=== PATIENT | female | born 1975 | race Caucasian/White ===

== ENCOUNTER 2019-03-18 11:20 | Inpatient (IN) ==
--- NOTE | 2019-03-18 11:42 | EKG Report ---
Test Performed on : 03/18/2019 11:26:30 AM Test Reason : cp Blood Pressure : / mmHG Vent. Rate : 113 BPM Atrial Rate : 113 BPM P-R Int : 162 ms QRS Dur : 102 ms QT Int : 358 ms P-R-T Axes : 055 -13 064 degrees QTc Int : 491 ms Sinus tachycardia. Possible Left atrial enlargement Inferior infarct , age undetermined Anterolateral infarct , age undetermined Abnormal ECG No previous ECGs available Unconfirmed Result
--- NOTE | 2019-03-18 11:47 | Diag Imaging Result Doc PS360 ---
EXAM: CHEST-1 VIEW 03/18/2019 HISTORY: cp TECHNIQUE: AP upright portable at 1141 COMMENT: There are no previous studies available for comparison. There is cardiomegaly. There is alveolar opacification in the lower lobes particularly the right lower lobe. IMPRESSION: Cardiomegaly and mild pulmonary edema. Electronically signed by Chuy Childers 03/18/2019 11:44 AM
[2019-03-18 12:22] LABS: BASO# 0.02 X1000 (0.0-0.2); BASO% 0.2 % (0.0-0.8); EOS# 0.02 X1000 (0.0-0.7); EOS% 0.2 % (0.0-10.0); HEMATOCRIT 40.2 % (37.0-47.0); HEMOGLOBIN 11.8 g/dL (12.0-16.0); IMM GRAN# 0.05 X1000 (0.0-0.04); IMM GRAN% 0.6 % (0.0-0.5); LYMPH# 0.91 X1000 (1.2-3.4); LYMPH% 10.1 % (20.5-51.1); MCH 27.6 PG (27-31); MCHC 29.4 g/dL (33-37); MCV 94.1 FL (81-99); MONO# 0.56 X1000 (0.11-0.59); MONO% 6.2 % (1.7-9.3); MPV 11.5 FL (7.4-10.4); NEUT# 7.49 X1000 (1.4-6.5); NEUT% 82.7 % (42.2-75.2); PLT 161 X1000 (130-400); RBC 4.27 XMIL (4.2-5.4); RDW 19.9 % (11.5-14.5); WBC 9.05 X1000 (4.8-10.8)
[2019-03-18 12:30] LABS: INR 1.31; PROTIME 16.5 Seconds (11.0-16.0); PTT 32.7 Seconds (22.3-41.8)
[2019-03-18 13:30] LABS: AGAP 16; ALB/GLOB RATIO 1.3; ALBUMIN 3.4 g/dL (3.5-5.0); ALKALINE PHOSPHATASE 81 U/L (32-104); BUN 15 mg/dL (8-22); CALCIUM 8.7 mg/dL (8.8-10.2); CHLORIDE 95 mmol/L (98-107); COSMO 282; CREATININE 0.8 mg/dL (0.5-0.9); ESTIMATED GFR > 60; GLUCOSE 168 mg/dL (70-104); GOT 16 U/L (10-30); GPT 11 U/L (10-36); SODIUM 139 mmol/L (136-145); TCO2 28 mmol/L (25-35); TOTAL BILIRUBIN 2.32 mg/dL (0.20-1.00); TOTAL PROTEIN 6.1 g/dL (6.3-8.3)
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
[2019-03-18] MEDS ORDERED: NITROGLYCERIN SL PRN (13:52)
[2019-03-18] MEDS ORDERED: ZOFRAN IV PRN (13:52)
[2019-03-18 13:53] LABS: POTASSIUM 2.6 mmol/L (3.5-5.1)
[2019-03-18] MEDS ORDERED: LASIX IV ONE (13:56)
[2019-03-18] MEDS ORDERED: LOVENOX SUBQ SCH (14:00)
[2019-03-18 14:54] LABS: HEMOGLOBIN A1C 5.9 % (4.8-6.0)
[2019-03-18 15:36] LABS: FREE T4 1.37 ng/dL (0.93-1.70); TSH 4.79 uIUmL (0.27-4.20)
[2019-03-18] MEDS ORDERED: POTASSIUM CHLORIDE 60 MEQ in NS 500 ML IV ONE (15:57)
[2019-03-18] MEDS ORDERED: KLOR-CON PO ONE ×2 (15:57→21:09)
--- NOTE | 2019-03-18 17:23 | Diag Imaging Result Doc PS360 ---
EXAM: CT ANGIOGRM PULMONARY ARTERIES INDICATION: rule out PE; sob; chest pain TECHNIQUE: This exam was performed using automated exposure control, adjustment of mA or kV according to patient size, and/or use of iterative reconstruction technique. Thin section axial images and 3-D MIPS were obtained. COMPARISON: None. FINDINGS: There is no evidence of pulmonary embolism. The aorta is not opacified. However, there is no evidence of aortic aneurysm. There is cardiomegaly. There is no evidence of significant mediastinal or hilar lymphadenopathy. There is groundglass opacity and interstitial thickening at the lower lung zones bilaterally, more prominent on the right. This affects predominantly the lower lobes but also the right middle lobe and, to a lesser degree, the inferior lingula and anterior segment of the right upper lobe. The CT pattern is that of crazy paving. This is highly nonspecific but can be associated with alveolar proteinosis. It may simply represent pulmonary edema. Please correlate clinically. There is no pleural fluid collection and no pneumothorax. Limited views of the upper abdomen reveals a small to moderate amount of ascites around the liver and spleen. There is body wall anasarca. IMPRESSION: 1.Groundglass consolidation and interstitial thickening at the lung bases. Please see above discussion. 2.Cardiomegaly. 3.Small to moderate amount of ascites tracking around the liver and spleen. 4.Body wall anasarca. 5.No evidence of pulmonary embolism. Electronically signed by Jon Capone 03/18/2019 5:20 PM
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
[2019-03-18] MEDS: TYLENOL PO PRN (19:17)
[2019-03-18 19:25] LABS: UR AMPHETAMINES QUAL NONE DETECTED (NONE DETECT); UR BARBITUATES QUAL NONE DETECTED (NONE DETECT); UR BENZODIAZEPIN QUAL NONE DETECTED (NONE DETECT); UR CANNABINOIDS QUAL NONE DETECTED (NONE DETECT); UR COCAINE QUAL NONE DETECTED (NONE DETECT); UR METHADONE QUAL NONE DETECTED (NONE DETECT); UR OPIATES QUAL NONE DETECTED (NONE DETECT); UR OXYCODONE QUAL NONE DETECTED (NONE DETECT); UR PCP QUAL NONE DETECTED (NONE DETECT)
[2019-03-18] MEDS ORDERED: CYMBALTA PO ONE (19:36)
[2019-03-18] MEDS ORDERED: PRILOSEC PO SCH (21:00)
[2019-03-18] MEDS: DEMADEX PO SCH (21:48)
[2019-03-19] MEDS: MORPHINE IV PRN ×2 (01:25→21:38)
[2019-03-19 06:05] LABS: BASO# 0.01 X1000 (0.0-0.2); BASO% 0.1 % (0.0-0.8); EOS# 0.06 X1000 (0.0-0.7); EOS% 0.7 % (0.0-10.0); HEMATOCRIT 39.5 % (37.0-47.0); HEMOGLOBIN 11.3 g/dL (12.0-16.0); LYMPH# 1.43 X1000 (1.2-3.4); LYMPH% 15.8 % (20.5-51.1); MCH 27.6 PG (27-31); MCHC 28.6 g/dL (33-37); MCV 96.6 FL (81-99); MONO# 0.61 X1000 (0.11-0.59); MONO% 6.7 % (1.7-9.3); MPV 11.2 FL (7.4-10.4); NEUT# 6.95 X1000 (1.4-6.5); NEUT% 76.7 % (42.2-75.2); PLT 174 X1000 (130-400); RBC 4.09 XMIL (4.2-5.4); WBC 9.06 X1000 (4.8-10.8)
[2019-03-19 06:29] LABS: ALB/GLOB RATIO 1.3; ALBUMIN 3.5 g/dL (3.5-5.0); CALCIUM 8.7 mg/dL (8.8-10.2); MAGNESIUM 1.6 mg/dL (1.5-2.7); POTASSIUM 3.5 mmol/L (3.5-5.1); TOTAL BILIRUBIN 1.59 mg/dL (0.20-1.00); TOTAL PROTEIN 6.1 g/dL (6.3-8.3)
[2019-03-19] MEDS ORDERED: LEXISCAN ONE (08:02)
[2019-03-19] MEDS ORDERED: LASIX PO SCH (09:00)
[2019-03-19] MEDS ORDERED: CYMBALTA PO SCH (09:00)
[2019-03-19] MEDS: PROTONIX PO SCH (10:12)
[2019-03-19] MEDS: DEMADEX PO SCH (10:12)
[2019-03-19] MEDS: ASPIRIN EC PO SCH (10:13)
[2019-03-19] MEDS ORDERED: TUCKS PADS TOP PRN (10:55)
[2019-03-19 11:09] LABS: IRON SATURATION 10 %; TIBC 422 ug/dL; TOTAL IRON 41 ug/dL (49-151); UNBOUND IRON 381 ug/dL (112-346)
[2019-03-19] MEDS: LANOXIN IV SCH ×3 (11:21→17:59)
[2019-03-19] MEDS: ALDACTONE PO SCH (11:22)
[2019-03-19] MEDS: ALTACE PO SCH ×2 (11:22→21:23)
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
[2019-03-19] MEDS: LASIX IV SCH ×2 (12:36→21:24)
[2019-03-19] MEDS: ANUSOL-HC SUPP PR SCH ×2 (12:40→16:28)
[2019-03-19] MEDS: ANUSOL-HC CREAM PR SCH ×2 (12:40→21:29)
--- NOTE | 2019-03-19 13:03 | ECHO REPORT ---
ORDER DATE: 03/18/2019 INDICATIONS: CHF, shortness of breath, chest pain. FINDINGS: 1. Severe enlargement of the right atrium. 2. Severe tricuspid regurgitation. RV systolic pressure of 37. 3. Dilatation of the right ventricle with [id number] reduction in RV systolic function. 4. Mild pulmonic insufficiency. 5. Severe left atrial enlargement with a dimension of 5.1 cm. 6. No mitral valve prolapse. Mild mitral regurgitation. No mitral stenosis. 7. Dilated left ventricle with an end-diastolic dimension of 6 cm. Normal wall thicknesses with a posterior and interventricular septal thickness of 1.0 and 1.1 cm respectively. Severe reduction in LV systolic function with an estimated EF of 15%. Optison contrast was used. There was no clear evidence of left ventricular thrombus. 8. The aortic valve opens well. It is trileaflet. No evidence of stenosis or insufficiency. 9. The aorta appears normal in visualized segments. 10. No pericardial effusion identified. 11. Injection of agitated saline contrast showed a scant amount of bubbles on the left side of the heart suggesting an extremely small [id number]-[id number]-kgty shunt, possibly an extremely small PFO. cc: MD Chiquita Kay CRNP
--- NOTE | 2019-03-19 13:46 | Diag Imaging Result Document ---
PROCEDURE NAME: MYOCARDIAL PERFU SCAN, REST - 03/19/2019 RESTING NUCLEAR SCAN: 15.9 mCi of Cardiolite was injected. Non-gated rest images were obtained. Images revealed left ventricle is severely dilated. There is a large severe grade defect in the inferior wall. Large size severe grade defect in the left ventricular apex, there is large size, moderate grade defect in the lateral wall. CONCLUSIONS: Dilated left ventricle with a large size defect severe grade in the inferior and inferoapical wall, in addition there is large size, moderate grade to severe defect in the inferolateral wall. cc: MD Chiquita Feliciano CRNP
[2019-03-19] MEDS: VENOFER 250 MG in NS 150 ML IV SCH (16:26)
--- NOTE | 2019-03-19 16:54 | PROGRESS NOTE ---
DATE: 03/19/2019 INTERVAL HISTORY: Patient with stable lower extremity swelling. Continues to saturate well on room air. Left shoulder, neck pain stable. REVIEW OF SYSTEMS: Twelve point review of systems negative except as per interval history. LABS: WBC 9.0, hemoglobin 11.3, hematocrit 39.5, platelets 174,000. Sodium 141, potassium 3.5, BUN 20, creatinine 1.0, glucose 143. Troponin 0.14, approximately the same as previous. VITAL SIGNS: Temperature 97.8 degrees, pulse 104, respirations 24, blood pressure 124/94, O2 saturation 100% on room air. PHYSICAL EXAMINATION: General: No acute distress. Vital signs: As above. HEENT: Normocephalic, atraumatic. Moist mucous membranes. Cardiovascular: Minimally tachycardic but regular. No murmurs noted. Pulmonary: Essentially clear to auscultation bilaterally. Abdomen: Soft, nontender, minimal distention. Bowel sounds positive. Extremities: Peripheral pulses intact. Lower extremities are tight, but pitting fairly minimal, trace to 1+. No clubbing or cyanosis. Neurologic: Cranial nerves grossly intact. No focal deficits identified. Psychiatric: Normal mood and affect. Awake, alert, oriented x3. ASSESSMENT AND PLAN: 1. Acute on chronic systolic congestive heart failure. Last known EF 10%. No previous BNP in our system, but it is elevated. I do not know what she usually runs. Cardiology on board and planning to diurese patient. Volume overload is primarily in the legs. Her lungs are pretty clear and she is saturating well on room air. Monitor. 2. Left arm and neck pain. This was after significant anxiety and some exertion. Does have a mildly elevated troponin, but it appears to be flat. The patient had a catheterization approximately 1.5 months ago. Stress test was ordered initially but canceled by Cardiology because of recent catheterization and known severe systolic congestive heart failure. Further management as per Cardiology. 3. Hypertension. Continue CHF medicines and monitor. 4. Gastroesophageal reflux disease. Continue PPI. 5. Anxiety. Continue Cymbalta. 6. History of right arm deep vein thrombosis. Reportedly on Xarelto at home. Holding currently but will plan on restarting if no need for procedures. 7. Tobacco abuse. Counseled on cessation.
[2019-03-20] MEDS: LANOXIN IV SCH (02:03)
[2019-03-20] MEDS: MORPHINE IV PRN ×2 (06:11→20:54)
[2019-03-20] MEDS: PROTONIX PO SCH (06:14)
[2019-03-20 07:48] LABS: BASO# 0.02 X1000 (0.0-0.2); BASO% 0.2 % (0.0-0.8); EOS# 0.08 X1000 (0.0-0.7); EOS% 0.9 % (0.0-10.0); HEMATOCRIT 38.2 % (37.0-47.0); IMM GRAN# 0.02 X1000 (0.0-0.04); IMM GRAN% 0.2 % (0.0-0.5); LYMPH# 0.84 X1000 (1.2-3.4); LYMPH% 9.6 % (20.5-51.1); MCH 27.2 PG (27-31); MCHC 28.8 g/dL (33-37); MCV 94.6 FL (81-99); MONO# 0.46 X1000 (0.11-0.59); MONO% 5.3 % (1.7-9.3); MPV 10.7 FL (7.4-10.4); NEUT# 7.31 X1000 (1.4-6.5); NEUT% 83.8 % (42.2-75.2); PLT 144 X1000 (130-400); RBC 4.04 XMIL (4.2-5.4); RDW 19.6 % (11.5-14.5); WBC 8.73 X1000 (4.8-10.8)
[2019-03-20 08:14] LABS: AGAP 13; ALB/GLOB RATIO 1.6; ALBUMIN 3.2 g/dL (3.5-5.0); ALKALINE PHOSPHATASE 74 U/L (32-104); BUN 15 mg/dL (8-22); CALCIUM 8.7 mg/dL (8.8-10.2); CHLORIDE 97 mmol/L (98-107); COSMO 285; CREATININE 0.8 mg/dL (0.5-0.9); ESTIMATED GFR > 60; GLUCOSE 121 mg/dL (70-104); GOT 12 U/L (10-30); GPT 9 U/L (10-36); MAGNESIUM 1.5 mg/dL (1.5-2.7); POTASSIUM 3.3 mmol/L (3.5-5.1); SODIUM 142 mmol/L (136-145); TCO2 32 mmol/L (25-35); TOTAL BILIRUBIN 1.84 mg/dL (0.20-1.00); TOTAL PROTEIN 5.2 g/dL (6.3-8.3)
[2019-03-20 08:42] LABS: ANISOCYTOSIS 1+; HYPOCHROM 1+; LYMPHS 10 % (21-51); MONO 2 % (1-9); POIKILOCYTOSIS 1+; SEGS 88 % (42-75)
[2019-03-20] MEDS: TYLENOL PO PRN (10:15)
[2019-03-20] MEDS: ALDACTONE PO SCH (10:17)
[2019-03-20] MEDS: ALTACE PO SCH ×2 (10:17→20:54)
[2019-03-20] MEDS: ANUSOL-HC SUPP PR SCH ×3 (10:17→16:59)
[2019-03-20] MEDS: LOVENOX SUBQ SCH (10:17)
[2019-03-20] MEDS: ASPIRIN EC PO SCH (10:17)
[2019-03-20] MEDS: ANUSOL-HC CREAM PR SCH ×2 (10:19→22:17)
[2019-03-20] MEDS ORDERED: KLOR-CON PO ONE (10:54)
[2019-03-20] MEDS ORDERED: MAGNESIUM SULFATE 2 GM/S.W.I. 2 GM/50 ML IVPB IV ONE (11:30)
[2019-03-20] MEDS: LASIX IV SCH ×2 (11:57→20:54)
[2019-03-20] MEDS: VENOFER 250 MG in NS 150 ML IV SCH (11:57)
--- NOTE | 2019-03-20 12:26 | PROGRESS NOTE ---
DATE: 03/20/2019 SUBJECTIVE: The patient has been complaining of some shortness of breath and cough, she is still having lower extremity edema with some blisters and is weeping. We will continue with diuretics, Cardiology Department on board. OBJECTIVE: Vital Signs: Temperature 97.8 degrees, pulse 94, respiratory rate 22, blood pressure 125/73, oxygen saturation 100% on room air. HEENT: Head normocephalic, no trauma, PERRLA. Neck: Supple. She does have some JVD, central trachea, but is hard to see because of her neck size. Chest: Decreased breath sounds globally with some crepitus at the bases. Abdomen: Soft, protuberant, obese, positive bowel sounds. Extremities: 1+ lower extremity edema, but her lower extremities are tight, she has some blisters and is weeping. Neurological: The patient is awake, alert. She is oriented x3. No focal neurological deficits. LABORATORY: WBC 8.7, hemoglobin 11, hematocrit 38.2, platelet 144,000. Sodium 142, potassium 3.3, chloride 97, bicarbonate 32, BUN 15, creatinine 0.8, glucose 121, calcium 8.7, magnesium 1.5, albumin 3.2. ASSESSMENT AND PLAN: 1. CHF exacerbation, systolic. Her ejection fraction is around 15%. She has been placed on diuretics, Cardiology Department on board. We will continue to monitor this patient closely. She feels a bit better, but still short of breath and she is still edematous. 2. History of severe coronary artery disease with multiple coronary interventions. 3. Hypertension, stable. 4. Gastroesophageal reflux disease. Continue proton pump inhibitors. 5. Anxiety, continue with Cymbalta. 6. History of right arm DVT. It looks like she has been on Xarelto at home, I will corroborate this information. At this moment she is on Lovenox high dose so we will monitor for now. 7. Morbid obesity with a body mass index of 40.0. 8. Tobacco abuse. This patient has been highly advised against tobacco use. I will continue with daily cessation education. 9. Hypokalemia with borderline low hypomagnesemia. I will replace both. cc: Nikko Harrison MD
--- NOTE | 2019-03-20 12:28 | EKG Report ---
Test Performed on : 03/20/2019 07:17:35 AM Test Reason : dyspnea Blood Pressure : / mmHG Vent. Rate : 095 BPM Atrial Rate : 095 BPM P-R Int : 158 ms QRS Dur : 104 ms QT Int : 390 ms P-R-T Axes : 048 004 026 degrees QTc Int : 490 ms Normal sinus rhythm. Inferior infarct , age undetermined Anterolateral infarct , age undetermined Abnormal ECG Confirmed by Wilder JACOBSON, Theo Bellamy ([id number]) on 03/22/2019 9:28:24 AM
--- NOTE | 2019-03-20 18:40 | CARDIOLOGY PROGRESS NOTE ---
DATE: 03/20/2019 SUBJECTIVE: Ms. Bernard reports she is doing better. Her breathing has improved. Edema has improved, but has not resolved. OBJECTIVE: vital signs: Afebrile. Heart rate 97, blood pressure 118/78. Her cumulative I's and O's have been negative 2.3 L. General: No acute distress. Cardiovascular: She sounds to be in a regular rate and rhythm. She has no murmurs. She has marked bilateral lower extremity edema. Warm and well perfused extremities. Chest: Clear bilaterally. No increased work of breathing. Abdomen: Soft, nontender. PERTINENT DATA: White count 8.7, hematocrit 38. Sodium 142, potassium is 3.3, BUN 15, creatinine 0.8, magnesium level is 1.5. ASSESSMENT: Ms. Bernard is a 43-year-old female with systolic heart failure. PLAN: We will continue with diuresis. I have added in a low dose of beta-lina at 3.125 mg b.i.d. of Coreg. cc: Jeremi Mcleod MD
[2019-03-20] MEDS: COREG PO SCH (20:54)
[2019-03-21] MEDS: PROTONIX PO SCH (06:02)
[2019-03-21 06:19] LABS: BASO# 0.01 X1000 (0.0-0.2); BASO% 0.1 % (0.0-0.8); EOS# 0.05 X1000 (0.0-0.7); EOS% 0.5 % (0.0-10.0); HEMATOCRIT 37.6 % (37.0-47.0); HEMOGLOBIN 10.7 g/dL (12.0-16.0); IMM GRAN# 0.03 X1000 (0.0-0.04); IMM GRAN% 0.3 % (0.0-0.5); LYMPH# 0.94 X1000 (1.2-3.4); LYMPH% 9.4 % (20.5-51.1); MCHC 28.5 g/dL (33-37); MCV 94.7 FL (81-99); MPV 11.3 FL (7.4-10.4); NEUT# 8.25 X1000 (1.4-6.5); NEUT% 82.7 % (42.2-75.2); PLT 149 X1000 (130-400); RBC 3.97 XMIL (4.2-5.4); RDW 19.5 % (11.5-14.5); WBC 9.98 X1000 (4.8-10.8)
[2019-03-21 06:41] LABS: AGAP 13; ALB/GLOB RATIO 1.4; ALBUMIN 3.4 g/dL (3.5-5.0); ALKALINE PHOSPHATASE 82 U/L (32-104); BUN 12 mg/dL (8-22); CALCIUM 8.4 mg/dL (8.8-10.2); CHLORIDE 95 mmol/L (98-107); COSMO 274; CREATININE 0.7 mg/dL (0.5-0.9); ESTIMATED GFR > 60; GLUCOSE 131 mg/dL (70-104); GOT 13 U/L (10-30); GPT 9 U/L (10-36); MAGNESIUM 1.8 mg/dL (1.5-2.7); POTASSIUM 3.5 mmol/L (3.5-5.1); SODIUM 136 mmol/L (136-145); TCO2 28 mmol/L (25-35); TOTAL BILIRUBIN 1.82 mg/dL (0.20-1.00); TOTAL PROTEIN 5.8 g/dL (6.3-8.3)
--- NOTE | 2019-03-21 06:47 | EKG Report ---
Test Performed on : 03/21/2019 06:29:50 AM Test Reason : dyspnea Blood Pressure : / mmHG Vent. Rate : 090 BPM Atrial Rate : 090 BPM P-R Int : 172 ms QRS Dur : 106 ms QT Int : 450 ms P-R-T Axes : 037 -05 060 degrees QTc Int : 550 ms Critical Test Result: Long QTc Normal sinus rhythm. Possible Left atrial enlargement Inferior infarct , age undetermined Anterolateral infarct , age undetermined Abnormal ECG Confirmed by Wilder JACOBSON, Theo Bellamy ([id number]) on 03/22/2019 9:28:55 AM
--- NOTE | 2019-03-21 06:54 | Diag Imaging Result Doc PS360 ---
EXAM: CHEST-PORTABLE 03/21/2019 HISTORY: dyspnea TECHNIQUE: AP portable at 0447 COMMENT: There is cardiomegaly. There is bilateral lower lobe alveolar opacity which was also present on 03/18/2019. IMPRESSION: Bibasilar pulmonary edema versus pneumonia. Cardiomegaly. Electronically signed by Chuy Childers 03/21/2019 6:52 AM
[2019-03-21] MEDS: VENOFER 250 MG in NS 150 ML IV SCH (09:34)
[2019-03-21] MEDS: ASPIRIN EC PO SCH (09:39)
[2019-03-21] MEDS: LASIX IV SCH ×2 (09:39→20:37)
[2019-03-21] MEDS: ALTACE PO SCH ×2 (09:39→20:37)
[2019-03-21] MEDS: ALDACTONE PO SCH (09:39)
[2019-03-21] MEDS: LOVENOX SUBQ SCH (09:39)
[2019-03-21] MEDS: ANUSOL-HC SUPP PR SCH ×3 (09:40→17:40)
[2019-03-21] MEDS: COREG PO SCH ×2 (09:40→20:37)
[2019-03-21] MEDS: ANUSOL-HC CREAM PR SCH ×2 (09:44→20:37)
--- NOTE | 2019-03-21 11:03 | PROGRESS NOTE ---
DATE: 03/21/2019 SUBJECTIVE: This patient is feeling better today. She is still having severe lower extremity edema with some blisters, and it is weeping. We will continue with diuretics. Cardiology Department on board. Kidney function stable. OBJECTIVE: Vital Signs: Temperature 97.7 degrees, pulse 92, respiratory rate 20, blood pressure 125/87, oxygen saturation 96% on room air. HEENT: Head normocephalic, no trauma, PERRLA. Neck: Supple. She does have some JVD. Central trachea, but it is hard to see because of her neck size. Chest: Decreased breath sounds mostly at the bases with some crepitus. Abdomen: Soft, protuberant, obese. Positive bowel sounds. Extremities: 3+ lower extremity edema. Her extremities are really tight, and she has some blister and weeping. Neurological: This patient is awake and oriented x3. No focal deficits. LABORATORY: WBC 9.9, hemoglobin 10.7, hematocrit 37.6, platelets 149,000. Sodium 136, potassium 3.5, chloride 95, bicarbonate 28, BUN 12, creatinine 0.7, glucose 131, calcium 8.4, magnesium 1.8, albumin 3.4. ASSESSMENT AND PLAN: 1. Congestive heart failure exacerbation, systolic, her ejection fraction is around 15%. She has been placed on diuretics, Cardiology Department on board. Continue with same management. She is feeling better, but she still has significant fluid overload, mostly at the level of the lower extremity. 2. History of severe coronary artery disease with multiple coronary interventions. 3. Hypertension, stable. 4. Gastroesophageal reflux disease. Continue with proton pump inhibitors. 5. Anxiety, continue with Cymbalta. 6. History of right arm DVT, continue with Lovenox. 7. Morbid obesity with a body mass index of 40.1. Aware. 8. Tobacco abuse. This patient has been highly advised against tobacco use. I will continue with daily cessation education. 9. Hypokalemia with borderline low hypomagnesemia, resolved. cc: Nikko Harrison MD
[2019-03-21] MEDS ORDERED: MAGNESIUM SULFATE 2 GM/S.W.I. 2 GM/50 ML IVPB IV ONE (12:25)
--- NOTE | 2019-03-21 14:37 | CARDIOLOGY PROGRESS NOTE ---
DATE: 03/21/2019 SUBJECTIVE: Ms Bernard reports she is doing well. Breathing has improved. She still has severe lower extremity edema. PHYSICAL EXAMINATION: Vital signs: Afebrile. Heart rate 92, blood pressure 125/87. I's and O's continue to be negative. She is a total net output of 3.1 L for the course of the hospitalization. General: No acute distress. Cardiovascular: She sounds to be in a regular rate and rhythm. She has no murmurs. She has marked bilateral lower extremity edema. Warm and well perfused. Chest: Clear bilaterally. Distant. No increased work of breathing. Abdomen: Soft, nontender. PERTINENT DATA: Sodium 136, potassium 3.5, BUN 12, creatinine 0.7, magnesium level 1.8. ASSESSMENT: Ms. Bernard is a 43-year-old female with congestive heart failure. PLAN: She continues to diurese. Her x-ray continues to show possible edema versus pneumonia. She is diuresing reasonably well. We will continue her on the current medications. Recheck laboratories in the morning. cc: Jeremi Mcleod MD
[2019-03-21] MEDS: MORPHINE IV PRN (21:06)
[2019-03-22] MEDS: TYLENOL PO PRN (03:19)
[2019-03-22] MEDS: PROTONIX PO SCH (06:11)
[2019-03-22 06:16] LABS: BASO# 0.01 X1000 (0.0-0.2); BASO% 0.1 % (0.0-0.8); EOS# 0.05 X1000 (0.0-0.7); EOS% 0.5 % (0.0-10.0); HEMATOCRIT 36.9 % (37.0-47.0); HEMOGLOBIN 10.7 g/dL (12.0-16.0); LYMPH# 1.18 X1000 (1.2-3.4); LYMPH% 12.4 % (20.5-51.1); MCH 27.9 PG (27-31); MCV 96.3 FL (81-99); MONO# 0.72 X1000 (0.11-0.59); MONO% 7.6 % (1.7-9.3); MPV 11.5 FL (7.4-10.4); NEUT# 7.55 X1000 (1.4-6.5); NEUT% 79.4 % (42.2-75.2); PLT 149 X1000 (130-400); RBC 3.83 XMIL (4.2-5.4); RDW 19.7 % (11.5-14.5); WBC 9.51 X1000 (4.8-10.8)
[2019-03-22 06:48] LABS: AGAP 13; ALB/GLOB RATIO 1.9; ALBUMIN 3.6 g/dL (3.5-5.0); ALKALINE PHOSPHATASE 96 U/L (32-104); BUN 14 mg/dL (8-22); CALCIUM 8.7 mg/dL (8.8-10.2); CHLORIDE 98 mmol/L (98-107); COSMO 281; CREATININE 0.8 mg/dL (0.5-0.9); ESTIMATED GFR > 60; GLUCOSE 115 mg/dL (70-104); GOT 13 U/L (10-30); GPT 10 U/L (10-36); MAGNESIUM 2.1 mg/dL (1.5-2.7); POTASSIUM 3.6 mmol/L (3.5-5.1); SODIUM 140 mmol/L (136-145); TCO2 29 mmol/L (25-35); TOTAL PROTEIN 5.5 g/dL (6.3-8.3)
--- NOTE | 2019-03-22 07:06 | EKG Report ---
Test Performed on : 03/22/2019 06:57:41 AM Test Reason : dyspnea Blood Pressure : / mmHG Vent. Rate : 086 BPM Atrial Rate : 086 BPM P-R Int : 168 ms QRS Dur : 110 ms QT Int : 364 ms P-R-T Axes : 046 000 080 degrees QTc Int : 435 ms Normal sinus rhythm. Inferior infarct , age undetermined Anterolateral infarct , age undetermined Abnormal ECG Confirmed by Wilder JACOBSON, Theo Bellamy ([id number]) on 03/22/2019 9:29:25 AM
--- NOTE | 2019-03-22 08:08 | CARDIOLOGY PROGRESS NOTE ---
DATE: 03/22/2019 CHIEF COMPLAINT: Shortness of breath, swelling, palpitations. SUBJECTIVE: Ms. Bernard is feeling better. Her distance learning technician shows that her rate is better controlled. She has had one 4-beat run of ventricular tachycardia this morning. Otherwise, she has developed some pain and swelling of the right arm at the site of a recent intravenous line consistent with right thrombophlebitis. OBJECTIVE: Blood pressure 118/73, temperature 97.8, pulse 92, respirations 18. The patient is awake, alert, oriented, no distress. HEENT is unremarkable. Chest sounds clear to auscultation and percussion. Her heart sounds showed a gallop rhythm, third heart sound gallop. Abdomen is obese, slightly prominent. Extremities showed 2 to 3+ edema. She still has blisters in the legs. IMPRESSION: 1. The patient has persistent congestive heart failure, systolic, chronic, plus acute decompensation. 2. Morbid obesity. 3. History of severe coronary artery disease with previous myocardial infarction and coronary intervention. 4. Hypertension. 5. Tobacco user. 6. Hyperlipidemia. RECOMMENDATIONS: At this time, we will make her spironolactone twice a day. We will continue present medical therapy. I am going to put her on some digoxin which I think is appropriate for her given her significant left ventricular dysfunction. Her echocardiogram from 03/18/2019 showed ejection fraction of 15%. Further intervention will depend on her clinical course. cc: Negrito Macedo MD
[2019-03-22] MEDS: VENOFER 250 MG in NS 150 ML IV SCH (08:37)
[2019-03-22] MEDS: LASIX IV SCH ×2 (08:37→22:24)
[2019-03-22] MEDS: ALDACTONE PO SCH ×2 (08:44→22:24)
[2019-03-22] MEDS: ASPIRIN EC PO SCH (08:44)
[2019-03-22] MEDS: COREG PO SCH ×2 (08:44→22:23)
[2019-03-22] MEDS: ALTACE PO SCH ×2 (08:44→22:23)
[2019-03-22] MEDS: LOVENOX SUBQ SCH (08:45)
[2019-03-22] MEDS: ANUSOL-HC SUPP PR SCH ×3 (08:45→17:29)
[2019-03-22] MEDS: ANUSOL-HC CREAM PR SCH ×2 (08:47→22:40)
[2019-03-22] MEDS: LANOXIN PO SCH (08:50)
--- NOTE | 2019-03-22 18:40 | PROGRESS NOTE ---
DATE: 03/22/2019 SUBJECTIVE: This patient seems to be better today. She still has significant lower extremity edema and blisters, some weeping. Cardiology Department has evaluated this patient, and they have modified some of her medications including the spironolactone, and they added digoxin. We will monitor. OBJECTIVE: Vital Signs: Temperature 97.9 degrees, pulse 84, respiratory rate 16, blood pressure 120/72, and oxygen saturation 97% on room air. HEENT: Head normocephalic. No trauma. PERRLA. Neck: Supple. She does have some JVD. Central trachea. Chest: Decreased breath sounds mostly at the bases with some crepitus. Abdomen: Soft. Protuberant. Obese. Positive bowel sounds. Extremities: 3+ lower extremity edema. Her extremities are really tight. She has some blister and weeping. Neurological: This patient is awake and alert. She is oriented x3. No focal deficits. LABORATORY: WBC 9.5, hemoglobin 10.7, hematocrit 36.9, and platelets 149,000. Sodium 140, potassium 3.6, chloride 98, bicarbonate 29, BUN 14, creatinine 0.8 glucose 115, and calcium 8.7. ASSESSMENT AND PLAN: 1. Congestive heart failure exacerbation systolic. Her ejection fraction is around 50%. She has been placed on diuretics, Cardiology Department on board. The frequency of spironolactone has been modified, and now she is on digoxin. We will continue with same management. I will follow the recommendations of Cardiology Department. She is still overloaded. 2. History of severe coronary artery disease with multiple coronary interventions. 3. Hypertension stable. 4. Gastroesophageal reflux disease. Continue proton pump inhibitors. 5. Anxiety. Continue with Cymbalta. 6. History of right arm DVT. Continue with Lovenox. 7. Morbid obesity with a body mass index of 40.1. Aware. 8. Tobacco abuse. This patient has been highly advised against tobacco use. I will continue with daily cessation education. 9. Hypokalemia with borderline low hypomagnesemia resolved. cc: Nikko Harrison MD
[2019-03-23] MEDS: TYLENOL PO PRN (00:11)
[2019-03-23 05:56] LABS: AGAP 14; BUN 14 mg/dL (8-22); CALCIUM 9.1 mg/dL (8.8-10.2); CHLORIDE 99 mmol/L (98-107); COSMO 285; CREATININE 0.8 mg/dL (0.5-0.9); ESTIMATED GFR > 60; GLUCOSE 132 mg/dL (70-104); POTASSIUM 3.8 mmol/L (3.5-5.1); SODIUM 142 mmol/L (136-145); TCO2 29 mmol/L (25-35)
[2019-03-23] MEDS: ALDACTONE PO SCH ×2 (09:56→21:11)
[2019-03-23] MEDS: LANOXIN PO SCH (09:56)
[2019-03-23] MEDS: COREG PO SCH ×2 (09:56→21:12)
[2019-03-23] MEDS: ALTACE PO SCH ×2 (09:56→21:12)
[2019-03-23] MEDS: ASPIRIN EC PO SCH (09:56)
[2019-03-23] MEDS: LOVENOX SUBQ SCH (09:57)
[2019-03-23] MEDS: LASIX IV SCH ×2 (09:58→21:12)
[2019-03-23] MEDS: ANUSOL-HC CREAM PR SCH ×2 (10:00→21:32)
[2019-03-23] MEDS: ANUSOL-HC SUPP PR SCH ×3 (10:00→21:31)
[2019-03-23] MEDS: PROTONIX PO SCH (10:01)
[2019-03-23] MEDS: CYMBALTA PO SCH (11:57)
--- NOTE | 2019-03-23 14:42 | PROGRESS NOTE ---
DATE: 03/23/2019 SUBJECTIVE: The patient is feeling better. She still has significant lower extremity edema and blister, even though we already removed 9 L of fluid. I will put this patient back on one of her home medications, Cymbalta. She has been evaluated by the Wound Care nurse because she has some blisters, and some of them are broken. I will follow the recommendations of Cardiology Department. OBJECTIVE: Vital Signs: Temperature 97.5 degrees, pulse 92, respiratory rate 20, blood pressure 133/95, oxygen saturation 96 on room air. HEENT: Head normocephalic. No trauma. PERRLA. Neck: Supple. I do not see JVD. Central trachea. Chest: Decreased breath sounds, mostly at the bases with some crepitus. Abdomen: Soft, protuberant, obese. Positive bowel sounds. Extremities: There is 3+ lower extremity edema. Her extremities are really tight still, and she has some blisters and weeping. Neurological: The patient is awake and alert. She is oriented x3. No focal deficits. LABORATORY DATA: Sodium 142, potassium 3.8, chloride 99, bicarbonate 29, BUN 14, creatinine 0.8, glucose 132, calcium 9.1. ASSESSMENT AND PLAN: 1. Congestive heart failure exacerbation, systolic. Her ejection fraction is around 15%. She has been placed on diuretics. Cardiology Department is following this patient closely. Continue with the same management. 2. History of severe coronary artery disease. Aware. 3. Hypertension, stable. 4. Gastroesophageal reflux disease. Continue with proton pump inhibitors. 5. Anxiety. Continue with Cymbalta. 6. History of right arm deep venous thrombosis. Continue with Lovenox. 7. Morbid obesity with a body mass index of 39.9. Aware. 8. Tobacco abuse. She has been highly advised against tobacco use. I will continue with daily cessation education. 9. Hypokalemia with borderline low hypomagnesemia, resolved. cc: Nikko Harrison MD
--- NOTE | 2019-03-23 15:17 | CARDIOLOGY PROGRESS NOTE ---
DATE: 04/05/2019 CHIEF COMPLAINT: Shortness of breath and swelling. SUBJECTIVE: Mrs. Bernard is generally improving. She is still diuresing well. Her chemistries still look good. OBJECTIVE: Her vital signs are quite stable. Blood pressure 131/89, temperature 97.8, pulse 96, respirations 18. She is awake, alert and oriented, in no distress. HEENT unremarkable. Chest sounds better to auscultation and percussion. Her heart sounds are regular and rhythmic. She does have a gallop rhythm. Abdomen is obese. Extremities showed still presence of 1 to 2+ edema. Neurological exam: Follows commands. Moves four extremities. IMPRESSION: 1. The patient who presented with decompensated congestive heart failure. This is systolic and ischemic. She has had prior coronary events with stents to circumflex and elevated left ventricular end diastolic pressure. 2. Hypertension. 3. Tobacco user. 4. Hyperlipidemia. 5. Borderline morbidly obese. RECOMMENDATIONS: At this time, we will continue with present course of action. I am going to go up on the ramipril from 5 mg b.i.d. to 10 mg b.i.d. I will continue digoxin and spironolactone. She has been started on a low dose of beta-lina. Will see how she does. Will continue with IV Lasix. I would anticipate that probably by Friday she may be ready to go home. However, she still has some swelling. She really needs to be as euvolemic as possible before going home. ProBNP level has dropped from 3200 to 2400. Will continue to follow. cc: Negrito Macedo MD
[2019-03-24] MEDS: TYLENOL PO PRN (00:08)
[2019-03-24 06:36] LABS: AGAP 13; BUN 12 mg/dL (8-22); CHLORIDE 100 mmol/L (98-107); COSMO 282; CREATININE 0.7 mg/dL (0.5-0.9); ESTIMATED GFR > 60; GLUCOSE 114 mg/dL (70-104); SODIUM 141 mmol/L (136-145); TCO2 28 mmol/L (25-35)
[2019-03-24] MEDS: PROTONIX PO SCH (06:50)
[2019-03-24] MEDS: ALTACE PO SCH ×2 (10:01→21:45)
[2019-03-24] MEDS: COREG PO SCH ×2 (10:02→21:48)
[2019-03-24] MEDS: LANOXIN PO SCH (10:02)
[2019-03-24] MEDS: ANUSOL-HC SUPP PR SCH ×4 (10:02→17:38)
[2019-03-24] MEDS: ASPIRIN EC PO SCH (10:02)
[2019-03-24] MEDS: ALDACTONE PO SCH ×2 (10:02→21:45)
[2019-03-24] MEDS: CYMBALTA PO SCH (10:02)
[2019-03-24] MEDS: LASIX IV SCH ×2 (10:03→21:45)
[2019-03-24] MEDS: LOVENOX SUBQ SCH (10:03)
--- NOTE | 2019-03-24 10:05 | PROGRESS NOTE ---
DATE: 03/24/2019 SUBJECTIVE: The patient is feeling better. She still has significant lower extremity edema, blisters, and weeping. We have a negative balance of 11.5 L. I discussed the case with Cardiology Department, and likely this patient will be hospitalized until the end of the week. OBJECTIVE: Vital Signs: Temperature 97.9 degrees, pulse 90, respiratory rate 17, blood pressure 127/83, oxygen saturation 95% on room air. HEENT: Head normocephalic. No trauma. PERRLA. Neck: Supple. I do not see JVD. Central trachea. Chest: Decreased breath sounds mostly at the bases with some crepitus. Abdomen: Soft, protuberant, obese. Positive bowel sounds. Extremities: There is 3+ lower extremity edema, some blister and weeping. Neurological: The patient is awake and alert. She is oriented x3. No focal deficits. LABORATORY DATA: Sodium 141, potassium 4, chloride 100, bicarbonate 28, BUN 12, creatinine 0.7, glucose 114, calcium 9. ASSESSMENT AND PLAN: 1. Congestive heart failure exacerbation, systolic. Her ejection fraction is around 15%. She has been placed on diuretics. Continue with Cardiology Department recommendations. 2. History of severe coronary artery disease. Aware. 3. Hypertension, stable. 4. Gastroesophageal reflux disease. Continue proton pump inhibitors. 5. Anxiety. Continue with Cymbalta. 6. History of right arm deep venous thrombosis. Continue with Lovenox. 7. Morbid obesity with a body mass index of 39.9. Aware. 8. Tobacco abuse. This patient has been highly advised against tobacco use. I will continue with daily cessation education. 9. Hypokalemia, resolved. cc: Nikko Harrison MD
[2019-03-24] MEDS: ANUSOL-HC CREAM PR SCH ×2 (12:52→21:45)
[2019-03-25] MEDS: TYLENOL PO PRN ×2 (01:33→21:31)
[2019-03-25 06:30] LABS: AGAP 10; BASO# 0.02 X1000 (0.0-0.2); BASO% 0.3 % (0.0-0.8); BUN 14 mg/dL (8-22); CALCIUM 9.1 mg/dL (8.8-10.2); CHLORIDE 99 mmol/L (98-107); COSMO 285; CREATININE 0.8 mg/dL (0.5-0.9); EOS# 0.12 X1000 (0.0-0.7); EOS% 1.5 % (0.0-10.0); ESTIMATED GFR > 60; GLUCOSE 189 mg/dL (70-104); HEMATOCRIT 37.7 % (37.0-47.0); HEMOGLOBIN 10.7 g/dL (12.0-16.0); IMM GRAN# 0.03 X1000 (0.0-0.04); IMM GRAN% 0.4 % (0.0-0.5); LYMPH# 1.12 X1000 (1.2-3.4); LYMPH% 14.1 % (20.5-51.1); MCH 27.9 PG (27-31); MCHC 28.4 g/dL (33-37); MCV 98.2 FL (81-99); MONO% 6.3 % (1.7-9.3); NEUT# 6.18 X1000 (1.4-6.5); NEUT% 77.4 % (42.2-75.2); PLT 160 X1000 (130-400); RBC 3.84 XMIL (4.2-5.4); RDW 20.7 % (11.5-14.5); SODIUM 140 mmol/L (136-145); TCO2 31 mmol/L (25-35); WBC 7.97 X1000 (4.8-10.8)
[2019-03-25] MEDS: PROTONIX PO SCH (06:32)
[2019-03-25] MEDS: ANUSOL-HC SUPP PR SCH ×3 (08:46→18:16)
[2019-03-25] MEDS: CYMBALTA PO SCH (08:52)
[2019-03-25] MEDS: LOVENOX SUBQ SCH (08:52)
[2019-03-25] MEDS: LASIX IV SCH ×2 (08:52→21:31)
[2019-03-25] MEDS: ANUSOL-HC CREAM PR SCH ×2 (08:53→21:41)
[2019-03-25] MEDS: ALDACTONE PO SCH ×2 (08:53→21:31)
[2019-03-25] MEDS: ALTACE PO SCH ×2 (08:53→21:31)
[2019-03-25] MEDS: COREG PO SCH ×2 (08:53→21:31)
[2019-03-25] MEDS: ASPIRIN EC PO SCH (08:53)
[2019-03-25] MEDS: LANOXIN PO SCH (08:54)
--- NOTE | 2019-03-25 09:50 | CARDIOLOGY PROGRESS NOTE ---
DATE: 03/25/2019 CHIEF COMPLAINT: Shortness of breath. SUBJECTIVE: Ms. Bernard believes that she continues to lose weight. Her legs in fact look smaller, especially the right one. The left one appears to be more swollen. She denies having any chest pain. Interestingly, she has had a persistent hacking cough and she says that she has had this cough since the very beginning of her illness. I wonder if this could potentially represent a side effect to VAUGHN inhibitors or Entresto which she took for some time. Telemetry has shown 10 beat run of non sustained ventricular tachycardia. OBJECTIVE: Vital Signs: Blood pressure 118/98, temperature 97.8, pulse 84, and respirations 22. Today the bed scale weight is 248 pounds. According to this built-in bed scale it is indicating that she has lost only 12 pounds since admission and that is highly doubtful. I will request a standing scale weight. General: she is awake, alert, oriented, and in no distress. HEENT: No jugular venous distention. Respiratory: Chest sounds clear to auscultation and percussion. Cardiovascular: Heart sounds are regular and rhythmic. She does have a gallop rhythm. Abdomen: The abdomen is obese and nontender. Extremities: The extremities show edema of both legs, 1+, more so on the left side. She still has some blisters in the pretibial area on the left side with some redness around the blisters. LABORATORY DATA: Blood work: Today sodium is 140, potassium 4, BUN 14, and creatinine 0.8. White cell count is 7,870. IMPRESSION: A patient who has: 1. Ischemic cardiomyopathy with compensated congestive heart failure functional class 3 to 4 of the [employer] with a low ejection fraction. 2. History of tobacco use. 3. Morbidly obese. 4. History of hypertension. 5. Hyperlipidemia. 6. Non sustained ventricular tachycardia (10 beat run) noted on telemetry. RECOMMENDATIONS: At this time, we will continue with diuresis. I really need to get a standing scale weight. Her cough is worrisome and it could represent intolerance to VAUGHN inhibitors. If that is the case, I may have to switch her over to Diovan 160 mg twice a day. Further advise will be forthcoming. We may have to consider a referral to EP for ICD implantation (prophylactic). I will also ask for a Resting gated MPI in AM to document current EF on optimized loading conditions. We will request lab work for the morning and then we will decide with the primary services if she is ready to be discharged. cc: Negrito Macedo MD MTDD
--- NOTE | 2019-03-25 16:43 | Diag Imaging Result Doc PS360 ---
EXAM: CHEST-PORTABLE 03/25/2019 HISTORY: SOB TECHNIQUE: AP portable upright at 1622 COMMENT: There is cardiomegaly. There is ill-defined opacity in the right lower lobe. This may be slightly worse than on 03/21/2019. IMPRESSION: Worsened right lower lobe pneumonia. Electronically signed by Chuy Childers 03/25/2019 4:40 PM
[2019-03-25] MEDS ORDERED: MERREM 1 GM in NS 50 ML IV SCH (17:00)
[2019-03-25] MEDS ORDERED: LEVAQUIN 500 MG/D5W 500 MG/100 ML IVPB IV SCH (17:15)
[2019-03-25] MEDS ORDERED: DOXYCYCLINE 100 MG in NS 250 ML IV SCH (18:00)
--- NOTE | 2019-03-25 19:59 | PROGRESS NOTE ---
DATE: 03/25/2019 SUBJECTIVE: This patient is resting comfortably in bed, but it looks like she has started coughing today. She has a dry cough, and as per the patient, she gets better when she drinks water. Because of that we were concerned about an VAUGHN inhibitor reaction, but also I did an x-ray that showed right lower lobe pneumonia. She is allergic to penicillins, so I will go ahead and put this patient on meropenem and doxycycline. On the other hand, her left leg today looks more a red than normal. As per the patient, this has been going on, on and off, mostly when she takes a bath, and she did a few minutes ago, but since she has some little wounds that looks like a scratch lesion. I will go ahead, and we will use the same type of antibiotics to cover this as well just in case this is related to an infectious process as well. I will continue following the recommendations of Cardiology Department. OBJECTIVE: Vital Signs: Temperature 98.1 degrees, pulse 83, respiratory rate 25, blood pressure 118/81, oxygen saturation 96% on room air. HEENT: Head normocephalic, no trauma. PERRLA. Neck: Supple. No JVD. No masses. Central trachea. Chest: She has decreased breath sounds mostly at the bases with some crepitus. Abdomen: Soft protuberant, obese. Positive bowel sounds. Extremities: 3+ lower extremity edema with some blisters and weeping. Also the left lower extremity looks a bit more red today. Neurologic: She is alert and oriented x3. No focal deficits. LABORATORY DATA: WBC 7.9, hemoglobin 10.7, hematocrit 37.7, platelets 160,000. Sodium 140, potassium 4, chloride 99, bicarbonate 31, BUN 14, creatinine 0.8, glucose 189, calcium 9.1. ASSESSMENT AND PLAN: 1. Congestive heart failure exacerbation, systolic, ejection fraction around 15%. She has been placed on diuretics. Continue following the recommendations of Cardiology Department. Probably, she will need to have a defibrillator in the near future. So far we removed close to 15 L. 2. Right lower lobe pneumonia and possible left lower extremity cellulitis. As per the patient, the leg has been always red on and off mostly when she takes a bath or she is standing up, but she has been having blisters and scratch lesions. I will cover this patient with antibiotics anyway for the right lower lobe pneumonia, so I will continue with that. 3. History of severe coronary artery disease, aware. 4. Hypertension, stable. 5. Gastroesophageal reflux disease. Continue with proton pump inhibitors. 6. Anxiety. Continue with Cymbalta. 7. History of right arm deep venous thrombosis. Continue for now with Lovenox. 8. Morbid obesity with a body mass index of 38.9. Aware. 9. Tobacco abuse. This patient has been highly advised against tobacco use. I will continue with daily cessation education. cc: Nikko Harrison MD
[2019-03-26 05:49] LABS: AGAP 11; BUN 13 mg/dL (8-22); CALCIUM 9.1 mg/dL (8.8-10.2); CHLORIDE 100 mmol/L (98-107); COSMO 280; CREATININE 0.8 mg/dL (0.5-0.9); ESTIMATED GFR > 60; GLUCOSE 99 mg/dL (70-104); POTASSIUM 4.4 mmol/L (3.5-5.1); SODIUM 140 mmol/L (136-145); TCO2 29 mmol/L (25-35)
[2019-03-26] MEDS: PROTONIX PO SCH (06:13)
[2019-03-26] MEDS: TYLENOL PO PRN (06:17)
[2019-03-26 12:15] VITALS: BP 118/69
[2019-03-26] MEDS: CYMBALTA PO SCH (12:40)
[2019-03-26] MEDS: LANOXIN PO SCH (12:40)
[2019-03-26] MEDS: ALDACTONE PO SCH (12:40)
[2019-03-26] MEDS: COREG PO SCH (12:41)
[2019-03-26] MEDS: ALTACE PO SCH (12:41)
[2019-03-26] MEDS: LASIX IV SCH (12:41)
[2019-03-26] MEDS: ASPIRIN EC PO SCH (12:41)
[2019-03-26] MEDS: LOVENOX SUBQ SCH (12:41)
[2019-03-26] MEDS: ANUSOL-HC CREAM PR SCH (12:47)
[2019-03-26] MEDS: ANUSOL-HC SUPP PR SCH ×2 (12:47→13:57)
--- NOTE | 2019-03-26 13:49 | CARDIOLOGY PROGRESS NOTE ---
DATE: 03/26/2019 CHIEF COMPLAINT: Shortness of breath, swelling. SUBJECTIVE: Mrs. Bernard is definitely doing better. She seems to be tolerating adjusted doses of carvedilol. Today, she finished a MUGA scan. OBJECTIVE: Vital signs: Temperature 97.9, pulse 80 per minute, respirations 14, blood pressure 118/69. General: She is awake, alert, oriented, no distress. HEENT: Unremarkable. Chest: Clear to auscultation and percussion. Heart: Sounds regular and rhythmic. She does have a gallop rhythm still. Abdomen: Obese. Extremities: Showed less edema with healing blisters. Neurologic exam: Follows commands, moves all 4 extremities. BLOOD WORK: Sodium 140, potassium 4.4, BUN 13, creatinine 0.8. ProBNP is 2636. When she came in, it was 3275. At this time, she is tolerating the following medications: Spironolactone 25 b.i.d., ramipril 10 mg b.i.d., carvedilol 6.25 mg b.i.d., aspirin 81 mg daily, and furosemide 40 IV twice a day. IMPRESSION: 1. A patient with ischemic cardiomyopathy, congestive heart failure functional class III. 2. Previous coronary stents, previous myocardial infarction. 3. History of hypertension. 4. History of hyperlipidemia. 5. Morbid obesity. 6. Nonsustained ventricular tachycardia. RECOMMENDATIONS: We have done the MUGA scan that shows that her ejection fraction is 24%. At this time, the patient is stable to be discharged on the aforementioned medications. She is supposed to follow up with Dr. Vanegas and we will arrange for referral to Electrophysiology for implantation of a permanent defibrillator. Hopefully, she will continue to improve. It is critical for her to optimize her body weight. Thank you for asking us to participate in her evaluation. cc: MD ANDRE Horowitz
--- NOTE | 2019-03-27 22:27 | DISCHARGE SUMMARY ---
ADMISSION DATE: 03/18/2019 DISCHARGE DATE: 03/26/2019 DISCHARGE DIAGNOSES: 1. Congestive heart failure exacerbation, systolic, ejection fraction around 15%. 2. Right lower lobe pneumonia and possible left lower extremity cellulitis. 3. History of severe coronary artery disease. 4. Hypertension. 5. Gastroesophageal reflux disease. 6. Anxiety. 7. History of right arm deep venous thrombosis. 8. Morbid obesity with a body mass index of 38.9. 9. Tobacco abuse. PROCEDURE PERFORMED: Chest x-ray dated 03/18/2019 impression cardiomegaly and pulmonary edema. Echocardiogram dated 03/18/2019 ejection fraction of 15%, possibility of extremely small PFO. A stress test dated 03/19/2019 dilated left ventricular ventricle with a large size defect severe grade in the inferior and inferior apical wall, in addition there is a large size moderate grade 2 severe defect in the inferolateral wall. Chest x-ray dated 03/21/2019, bibasilar pulmonary edema versus pneumonia, cardiomegaly. Chest x- ray dated 03/25/2019 worsening right lower lobe pneumonia. Cardiac imaging nuclear medicine dated 03/26/2019 pending results. CONSULTS: Cardiology Department. HOSPITAL COURSE: A 44-year-old female with a past medical history of coronary artery disease, myocardial infarction in 2016 and 2018 both times got a stent, history of adrenal mass, congestive heart failure, seasonal allergies, hypertension, right arm DVT, apparently she had a hypercoagulable workup that was negative. She also has a history of HELLP syndrome and lost a child to it in vitro, history of kidney stone, admitted on 03/18/2019. Apparently the night before she felt like she was going to pass a kidney stone but the pain went away. The morning of admission she was driving heading to work and she had an anxiety reaction and palpitations. She felt like her left arm was having numbness, tingling and achiness going into up to her neck and in the back and behind the shoulder blades, she states that the symptoms were better. She has been doing a lot of coughing during the examination and continue to smoke cigarettes, Cardiology Department was consulted. She was placed on diuretics and they readjusted her medications and actually around 16.3 L of fluids were removed, that means that we have a negative balance of 16.3 L at least, echocardiogram showed an ejection fraction of 15% and a stress test was also performed as well as a nuclear medicine cardiac images, at the beginning she was coughing then the cough got better after getting diuretics and getting rid of a lot of fluid but yesterday she started coughing again and we had an x-ray that showed pneumonia, she never had a leukocyte count elevation and actually never had fever during this hospitalization but yesterday also her left lower extremity was a little bit more red than normal and she states that probably is because of the she took a shower and always happen after that. So anyway I will cover both the pneumonia and the possible cellulitis on her left leg since she is having some lesions there, blisters and superficial ulcers, this patient can be discharged today. Her dose of Lasix will be 60 twice a day as recommended by Dr. Macedo and continue with her medications that she has been on here and also with antibiotics to go home with. Vital signs: Temperature 97.9 degrees, pulse 80, respiratory rate 14, blood pressure 118/69, oxygen saturation 96 on room air. HEENT: Head normocephalic. No trauma. PERRLA. Neck: Supple. No JVD. No masses. Central trachea. Chest: She has decreased breath sounds mostly at the bases with some crepitus. Abdomen: Soft, protuberant, obese. Positive bowel sounds. Extremities: 2 to 3+ lower extremity edema with some superficial ulcers that used to be blister before. She has no weeping now, her left lower extremity is a little bit red compared with the right one but the temperature is about the same. Neurologic: Awake, alert, and oriented x3. No focal deficits. LABORATORY: Sodium 140, potassium 4.4, chloride 100, bicarbonate 29, BUN 13, creatinine 0.8, glucose 99, calcium 9.1, magnesium 2. DISCHARGE MEDICATIONS: Acetaminophen [*] mg p.o. q.6 hours as needed, aspirin 81 mg p.o. daily, Coreg 6.25 mg p.o. b.i.d., digoxin 250 mcg p.o. daily, doxycycline 100 mg p.o. b.i.d., Cymbalta 60 mg p.o. q.a.m., Lasix 60 mg p.o. b.i.d., Anusol cream twice a day, levofloxacin 750 mg p.o. daily, nitroglycerin sublingual 0.4 mg sublingual q.5 [*] hours as needed, Protonix 40 mg p.o. daily, ramipril 10 mg p.o. b.i.d., spironolactone 25 mg p.o. b.i.d. and Tucks pads on top as needed. TIME SPENT: 35 minutes. cc: Nikko Harrison MD
--- NOTE | 2019-03-31 14:56 | Diag Imaging Result Document ---
PROCEDURE NAME: MUGA (GATED CARDIAC SCAN) - 03/26/2019 PROCEDURE PERFORMED: Mother scan. DESCRIPTION OF PROCEDURE: There were 22.9 mCi of cold technetium pyrophosphate injected. Left ventricular ejection fraction was calculated by standard method. Left ventricle was dilated with severely reduced left ventricular systolic function. Ejection fraction was calculated at 27%. CONCLUSIONS: Dilated left ventricle with severely reduced systolic function. Ejection fraction calculated at 27%. There was global hypokinesis. cc: MD Negrito Feliciano MD
== END 2019-03-26 17:20 | disposition home or self-care (01) | DRG 291 ==
LOC: SUPCPDRO → ED 11:20 → EDIPHOLD 14:47 → SUATTDRO 14:47 → 2N 23:19 → 1N 03-19 18:29
PROVIDERS: ATTEND Internal Medicine